=== PATIENT | female | born 1960 | race Two or more races ===

== ENCOUNTER 2025-04-03 22:38 | Emergency (ER) | payer OTHER ==
[~2025-04-03] VITALS: Ht 162.6 cm; Wt 68.0 kg
[2025-04-03] MEDS ORDERED: ENALAPRIL MALEA10 MG NGT (22:58)
[2025-04-03] MEDS ORDERED: METFORMIN HCL500 M1 PO (22:58)
[2025-04-03] MEDS ORDERED: GABAPENTIN800 M1 PO (22:58)
[2025-04-04] MEDS ORDERED: INSULIN REGULAR, HUMAN 1,000 UNIT/10 ML UNITS SUBCUTANEO STA (01:03)
[2025-04-04] MEDS ORDERED: CEFAZOLIN SODIUM 1,000 MG VIAL IM STA (01:04)
[2025-04-04] MEDS ORDERED: TETANUS & DIPHTHERIA TOX,ADULT 0.5 ML VIAL IM STA (01:04)
[2025-04-04] MEDS ORDERED: CEFAZOLIN SODIUM 1,000 MG VIAL ONE (01:19)
[2025-04-04] MEDS ORDERED: DIPHTH,PERTUSS(ACELL),TET VAC 0.5 ML SYRINGE IM ONE (01:20)
[2025-04-04] MEDS ORDERED: LIDOCAINE HCL 1% 10ML VIAL ONE (01:34)
== END 2025-04-04 02:40 | disposition home or self-care (01) ==
LOC: ER 22:38
DX: S01.02XA Laceration with foreign body of scalp, initial encounter (principal); W01.0XXA Fall on same level from slipping, tripping and stumbling without subsequent striking against object, initial encounter; Y93.89 Activity, other specified; Y92.010 Kitchen of single-family (private) house as the place of occurrence of the external cause
CPT/HCPCS: 12001; 90471; 90714; 96372; 99282; J0690; J1670; J1815

== ENCOUNTER 2025-04-13 07:46 | Emergency (ER) | payer OTHER ==
[~2025-04-13] VITALS: Ht 162.6 cm; Wt 63.5 kg
[~2025-04-13 07:46] MED LIST: ENALAPRIL MALEA10 MG NGT; GABAPENTIN800 M1 PO; METFORMIN HCL500 M1 PO
[2025-04-13 08:09] VITALS: BP 130/78; O2SAT 99
[2025-04-13] MEDS ORDERED: VASOTEC10 MG (08:11)
[2025-04-13] MEDS ORDERED: LEVOTHYROXINE25 MCG PO (08:12)
[2025-04-13] MEDS ORDERED: LANTUS SOL100 UNIT/1 SQ (08:12)
[2025-04-13] MEDS ORDERED: CEFAZOLIN SODIUM 1,000 MG VIAL IV ONE (09:30)
[2025-04-13] MEDS ORDERED: FAMOtidine 10 MG/ML (4ML VIAL) IV ONE (09:30)
[2025-04-13] MEDS ORDERED: 0.9 % SODIUM CHLORIDE 1,000 ML IV ONE (09:30)
[2025-04-13 10:01] LABS: BASO % 0.2 % (0.1-1.2); EOS # 0.16 (0.04-0.54); EOS % 1.8 % (0.7-7.0); HEMATOCRIT 37.8 % (34.1-44.9); HEMOGLOBIN 12.9 g/dL (11.2-15.7); LYMPH # 3.23 (1.18-3.74); LYMPH % 35.6 % (19.3-53.1); MEAN CORPUSCULAR HEMOGLOBIN 27.4 pg (25.6-32.2); MONO # 0.74 (0.24-0.82); MONO % 8.1 % (4.7-12.5); NEUT # 4.87 (1.56-6.13); NEUT % 53.6 % (34.0-71.1); PLATELET COUNT 244 K/uL (163-369); RED BLOOD COUNT 4.71 M/uL (3.93-5.22); RED CELL DISTRIBUTION WIDTH 13.2 % (11.6-14.4)
[2025-04-13 10:11] LABS: ERYTHROCYTE SEDIMENTATION RATE 10 mm/hr (0-30)
[2025-04-13 10:20] LABS: INR 1.1; PARTIAL THROMBOPLASTIN TIME 22.3 SECONDS (22.0-34.0); PROTHROMBIN TIME 11.9 SECONDS (9.0-11.5)
[2025-04-13 10:40] LABS: ALBUMIN 3.6 gm/dL (3.4-5.0); BILIRUBIN TOTAL 0.64 mg/dL (0.3-1.2); CALCIUM 9.4 mg/dL (8.5-10.1); CREATININE SERUM 0.89 mg/dL (0.55-1.02); GFR 63.65; GLOBULINA 4.3 G/DL (2.4-3.5); POTASSIUM 5.09 mEq/L (3.5-5.1); TOTAL PROTEIN 7.9 gm/dL (6.4-8.2)
[2025-04-13 10:54] LABS: C-REACTIVE PROTEIN 0.62 MG/DL (0.00-0.29)
[2025-04-13] MEDS ORDERED: INSULIN REGULAR, HUMAN 1,000 UNIT/10 ML UNITS IV ONE (11:00)
== END 2025-04-13 13:16 | disposition home or self-care (01) ==
LOC: ER 08:32
PROVIDERS: General Practice
DX: L02.811 Cutaneous abscess of head [any part, except face] (principal); E11.9 Type 2 diabetes mellitus without complications; Z79.4 Long term (current) use of insulin; Z79.84 Long term (current) use of oral hypoglycemic drugs